=== PATIENT | female | born 1970 | race Caucasian/White ===

== ENCOUNTER 2022-11-15 11:11 | Outpatient (CLI) | payer OTHER | END 2022-11-15 11:12 | disposition home or self-care (01) | LOC: CSHULT 11:11 | PROVIDERS: ATTEND Nurse Practitioner Family | DX: K82.9 Disease of gallbladder, unspecified (principal); R16.0 Hepatomegaly, not elsewhere classified | CPT/HCPCS: 76700 ==

== ENCOUNTER 2022-12-25 16:37 | Outpatient (CLI) | payer BC, OTHER | END 2022-12-25 16:38 | disposition home or self-care (01) | LOC: CSHRAD 16:37 | PROVIDERS: ATTEND Internal Medicine | DX: Z01.818 Encounter for other preprocedural examination (principal); C79.51 Secondary malignant neoplasm of bone; C50.412 Malignant neoplasm of upper-outer quadrant of left female breast; R97.8 Other abnormal tumor markers; Z79.899 Other long term (current) drug therapy | CPT/HCPCS: 93005; 93010 ==

== ENCOUNTER 2023-01-10 14:13 | Outpatient (CLI) | payer BC, OTHER | END 2023-01-10 14:14 | disposition home or self-care (01) | LOC: CSHRAD 14:13 | PROVIDERS: ATTEND Internal Medicine | DX: Z79.899 Other long term (current) drug therapy (principal); C50.412 Malignant neoplasm of upper-outer quadrant of left female breast; C79.51 Secondary malignant neoplasm of bone | CPT/HCPCS: 93005; 93010 ==